=== PATIENT | male | born 1985 | race Caucasian/White ===

== ENCOUNTER 2022-08-27 21:14 | Emergency (ER) | payer OTHER, SELFPAY ==
--- NOTE | ~2022-08-27 | XR_ITS ---
EXAMINATION: XR ankle RT min 3V, XR foot RT min 3V DATE: 08/27/2022 22:18 INDICATION: Pain in the region of the Achilles tendon TECHNIQUE: 1. Anteroposterior, mortise, additional oblique and lateral view of the right ankle were obtained. 2. Dorsoplantar, two oblique and lateral views of the right foot were obtained. COMPARISON: None. FINDINGS: Alignment of the foot and ankle is normal. No acute fracture. Likely old healed fracture deformity of the distal right fibular diaphysis. Mild osteoarthritis at the first metatarsophalangeal and several tarsal metatarsal and interphalangeal joints. Small plantar calcaneal spur. No ankle joint effusion. The soft tissues are unremarkable. IMPRESSION: 1. 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 No acute osseous abnormality. Reviewed, dictated and finalized at location A. SLITTER IMPRESSION: 1. 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 No acute osseous abnorm ality.
[2022-08-27 21:23] VITALS: BP 130/79; PULSE 105; RESP 20; TEMP 37.1; O2SAT 100
--- NOTE | 2022-08-28 00:26 | PC.NURSE ---
Patients SO comes to desk and states this is ridiculous, we have been waiting for over 3 hours and he still hasn't seen a doctor. This nurse informs her that patients are taken back based on acuity and that he will be taken back as soon as available. Patients SO states well if we went to [place] we would be home by now. This is no okay! Patients SO then walks back to patient in waiting room and sits down.
--- NOTE | 2022-08-28 00:31 | PC.NURSE ---
Patient comes to desk to state I have been waiting so long in pain, this is ridiculous. This nurse informed him that I am unable to give wait times and patients are taken back based on acuity. Patient states if I went to [place], I would be done and home by now. Patient then wheels himself back to the waiting room.
[2022-08-28 01:17] VITALS: BP 134/66; PULSE 67; RESP 16; O2SAT 97
--- NOTE | 2022-08-28 01:53 | ED.LOWEXIN ---
HPI - Extremity Injury (Lower) General Chief Complaint: Extremity Injury, Lower Stated Complaint: right leg pain, felt like tore something Time Seen by Provider: 08/28/22 01:27 Source: patient Mode of arrival: ambulatory Limitations: no limitations History of Present Illness HPI Narrative: Patient is a 36-year-old male who presents to the ED with c/o R heel/calf pain. Patient reports he was playing soccer earlier today when he went to pivot while running when he felt and heard a pop in his right calf/posterior ankle. He complains of severe pain in his right posterior heel/ankle/calf. He has been unable to ambulate since then. Unable to move or dorsi/plantar flex ankle. No direct injury. No numbness. Patient has not taken anything for pain prior to arrival. Related Data Allergies Allergy/AdvReac Type Severity Reaction Status Date / Time No Known Allergies Allergy Verified 08/27/22 21:28 Review of Systems Review of Systems: CONSTITUTIONAL: Denies fever, chills, or sweats. MUSCULOSKELETAL: See HPI. NEUROLOGIC: Denies tingling, numbness, or weakness. All systems reviewed & are unremarkable except as noted in HPI and below PMFSH Past Medical History Medical History (Updated 08/28/22 @ 02:13 by Dariela Max PA-C) No pertinent past medical history Surgical History Surgical History (Updated 08/28/22 @ 02:13 by Dariela Max PA-C) No pertinent past surgical history Social History Social History (Updated 08/28/22 @ 02:13 by Dariela Max PA-C) Smoking status: Never smoker Exam Narrative: GENERAL: Well appearing, well-nourished, non-toxic, in no acute distress. HEAD: Normocephalic, atraumatic. NECK: Supple. No adenopathy, no masses. RESPIRATORY: Airway patent, respirations nonlabored. CARDIOVASCULAR: Regular rate and rhythm without murmurs, rubs, or gallops. DP and PT pulses 2+ and equal bilaterally. MUSCULOSKELETAL: Limited range of motion of right ankle due to pain. Significant tenderness to palpation and swelling noted to posterior right foot/ankle and region of Achilles tendon. Significant tenderness to palpation throughout right posterior calf. Positive Pearson test with absence of plantarflexion of right foot. Negative Pearson test on left foot. SKIN: Warm, dry, normal color. No rashes. NEURO: A&O X3. Speech clear. Cranial nerves II-XII grossly intact. No ataxic movements. PSYCHIATRIC: Appropriate mood and affect. Normal interaction. Course Vital Signs Vital signs: Vital Signs Temperature 98.8 F 08/27/22 21:23 Pulse Rate 105 H 08/27/22 21:23 Respiratory Rate 20 08/27/22 21:23 Blood Pressure 130/79 08/27/22 21:23 Pulse Oximetry 100 08/27/22 21:23 Oxygen Delivery Room Air 08/27/22 21:23 Temperature 98.8 F 08/27/22 21:23 Pulse Rate 67 08/28/22 01:17 Respiratory Rate 16 08/28/22 01:17 Blood Pressure 134/66 08/28/22 01:17 Pulse Oximetry 97 08/28/22 01:17 Oxygen Delivery Room Air 08/27/22 21:23 MDM - Extremity Injury (Lower) MDM Narrative Medical decision making narrative: Patient presented to ED with right posterior foot/ankle/heel pain. Injury sustained while running/pivoting. Patient neurovascularly intact on exam. Good pedal pulses. Sensation intact. Mechanism, exam, and presence of positive Pearson test concerning for Achilles tendon rupture. X-rays of right foot and right ankle interpreted by myself without signs of acute osseous abnormality. Discussed case with Dr. Jiménez, orthopedics, advised to splint in mild plantarflexion, crutches, follow-up in office. Pain medication sent to pharmacy. Patient given strict return precautions. He agrees with plan. Medical Records Attestation: I reviewed the patient's medical records. Imaging Data Attestation: I personally reviewed and interpreted this imaging study as follows: My impression: XR R ankle: No acute osseous abnormality. XR R foot: No acute osseous abnormality. Di
[2022-08-28] MEDS: KETOROLAC (*BKC) 60 MG/2 ML VIAL IM (02:08)
[2022-08-28] MEDS: HYDROcodone/acetaminophen (*CRX) 5-325 MG TABLET 1 TAB PO (02:10)
== END 2022-08-28 02:40 | disposition home or self-care (01) ==
PROVIDERS: Emergency Provider Physician Assistant
DX: S86.011A Strain of right Achilles tendon, initial encounter (principal); X50.0XXA Overexertion from strenuous movement or load, initial encounter
CPT/HCPCS: 29515; 73610; 73630; 96372; 99283; A9270; J1885